=== PATIENT | female | born 2005 | race Caucasian/White ===

== ENCOUNTER 2025-03-06 01:06 | Emergency (ER) | payer BC, SELFPAY ==
--- NOTE | ~2025-03-06 | XR_ITS ---
EXAMINATION: XR hand LT min 3V, 03/06/2025 2:10 CDT HISTORY: pain, injury COMPARISON: No comparisons available. Findings: No acute fracture or malalignment. No significant degenerative changes. Soft tissues unremarkable. Impression: No acute fracture or malalignment. Reviewed, dictated and finalized at location P. Impression: No acute fracture or malalignment.
[2025-03-06 01:17] VITALS: BP 123/75; PULSE 121; RESP 20; TEMP 36.6; O2SAT 100
--- NOTE | 2025-03-06 02:08 | ED_ITS ---
HPI - General Adult General Chief complaint: Extremity Injury, Upper Stated complaint: left hand injury Time Seen by Provider: 03/06/25 02:05 History of Present Illness HPI narrative: Patient 20-year-old female who presents emergency department chief complaint of left hand pain. Patient reports that she was playing softball fell forward onto her hand the patient reports bruising and swelling at the MCP joint of the 2nd digit patient reports that there is a little bit of tingling in her index finger Related Data Allergies Allergy/AdvReac Type Severity Reaction Status Date / Time No Known Allergies Allergy Verified 03/06/25 01:07 Review of Systems Review of Systems: A 10 system review of systems was completed on the patient and is negative except for what is stated in the HPI. Nursing and ancillary documentation was reviewed. Exam Narrative: GENERAL: Well-appearing, well-nourished, and in no acute distress. HEAD: Normocephalic, atraumatic. EYES: PERRLA and EOMI. ENT: Nares clear, no rhinorrhea or epistaxis. Mucous membranes moist. NECK: Supple. CHEST: Clear to auscultation. No respiratory distress. HEART: Regular rate and rhythm. No murmur heard. Normal peripheral pulses. ABDOMEN: Soft, nontender, nondistended, normal active bowel sounds. EXTREMITIES: Normal range of motion bruising present at the MCP joint of the left hand of the 2nd digit. No edema. SKIN: Warm, dry, no rash. NEURO: No focal deficits. Alert and oriented x3. PSYCH: Normal mood and affect. Course Vital Signs Vital signs: Vital Signs Temperature 36.6 C 03/06/25 01:17 Pulse Rate 121 H 03/06/25 01:17 Respiratory Rate 20 03/06/25 01:17 Blood Pressure 123/75 03/06/25 01:17 Pulse Oximetry 100 03/06/25 01:17 Oxygen Delivery Room Air 03/06/25 01:17 Temperature 36.6 C 03/06/25 01:17 Pulse Rate 121 H 03/06/25 01:17 Respiratory Rate 20 03/06/25 01:17 Blood Pressure 123/75 03/06/25 01:17 Pulse Oximetry 100 03/06/25 01:17 Oxygen Delivery Room Air 03/06/25 01:17 Medical Decision Making [facility] Narrative Medical decision making narrative: Differential diagnosis includes fracture, contusion Plain film x-rays were obtained of the hand that showed no evidence of fracture Vital Signs Vital Signs: Vital Signs Temperature 36.6 C 03/06/25 01:17 Pulse Rate 121 H 03/06/25 01:17 Respiratory Rate 20 03/06/25 01:17 Blood Pressure 123/75 03/06/25 01:17 Pulse Oximetry 100 03/06/25 01:17 Oxygen Delivery Room Air 03/06/25 01:17 Temperature 36.6 C 03/06/25 01:17 Pulse Rate 121 H 03/06/25 01:17 Respiratory Rate 20 03/06/25 01:17 Blood Pressure 123/75 03/06/25 01:17 Pulse Oximetry 100 03/06/25 01:17 Oxygen Delivery Room Air 03/06/25 01:17 Discharge Plan Discharge Clinical Impression: Contusion of dorsum of left hand Patient Disposition: Home Condition: Stable Instructions: Antibiotic Form, Hematoma (ED) Patient Language: Omani Follow-up/Referrals: PHYSICIAN,REAL ESTATE REPRESENTATIVE [Primary Care Provider, Internal Medicine] Tye Davis MD [Physician, Family Practice] Time of Disposition: 02:39
--- OUTSIDE RECORDS SUMMARY | 2025-03-06 02:48 | XMS_ITS | Clinical Summary ---
Author Organization [employer] Randy Caballero Address [address] [facility] [place] [address] Phone Care Team Providers Care Kiln Door Builder Name Role Phone Unavailable Primary Care Provider Unavailabl e Allergies No known active allergies Medications ibuprofen (ADVIL) 200 mg tabletIndicatio ns:Conjunctivit is of left eye,Pharyngitis , acute Take 200 mg by mouth every 6 hours as needed. Active ciprofloxacin (CILOXAN) 0.3 % solutionIndicat ions:Conjunctiv itis of left eye,Pharyngitis , acute Administer 1 Drop in left eye every 4 hours. 5 mL 0 4 Active Active Problems No known active problems Family History Medical History Relation Name Comments Healthy Father Healthy Mother Relation Name Status Comments Father Alive Mother Alive Social History Tobacco Use Types Packs/Day Years Used Date Smoking Tobacco: Never Adolescent Education Answer Date Record ed Getting School Help Needed Not on file 12/31 Comments No Sex and Gender Information Value Date Recorded Sex Assigned at Not on file Legal Sex Female 12:27 PM BANK REPRESENTATIVE Gender Identity Not on file Sexual Orientation Not on file Last Filed Vital Signs Vital Sign Reading Time Taken Comments Blood Pressure 113/76 05/29/2014 12:32 PM BANK REPRESENTATIVE Pulse 114 05/29/2014 12:32 PM BANK REPRESENTATIVE Temperature 37.2 C (99 F) 05/29/2014 12:32 PM BANK REPRESENTATIVE Respiratory Rate 20 05/29/2014 12:32 PM BANK REPRESENTATIVE Oxygen Saturation 100% 05/29/2014 12:32 PM BANK REPRESENTATIVE Inhaled Oxygen Concentration - - Weight 29 kg (64 lb) 05/29/2014 12:32 PM BANK REPRESENTATIVE Height 132.1 cm (4' 4) 05/29/2014 12:32 PM BANK REPRESENTATIVE Body Mass Index 16.64 05/29/2014 12:32 PM BANK REPRESENTATIVE Plan of Treatment Health Maintenance Due Date Last Done Comments CHLAMYDIA SCREENING (ANNUAL) 11-24 YEARS 01/29/2015 HPV VACCINES (1 - 3-dose series) 01/29/2019 DTAP/TDAP/TD VACCINES (1 - Tdap) 01/29/2023 HEPATITIS B VACCINES (1 of 3 - 19+ 3-dose series) 06/2022 INFLUENZA VACCINE (#1) 2024 CERVICAL CANCER SCREENING 01/29/2025 HPV/Cotest (21-29) 01/29/2025 PAP SMEAR 01/29/2025 Insurance [employer]/TRUE BLUE PPO [employer] BLUE UBIKOD/TRUE BLUE PPO
--- OUTSIDE RECORDS SUMMARY | 2025-03-06 02:48 | XMS_ITS | Clinical Summary ---
Author Organization [facility] Address [address] [place] [address] Care Team Providers Care Drawbridge Operator Name Role Phone Kimmie Beauchamp MD Primary Care Provider Allergies No known active allergies Medications No known medications Social History Tobacco Use Types Packs/Day Years Used Date Smoking Tobacco: Never Assessed Comments Unknown Sex and Gender Information Value Date Recorded Sex Assigned at Not on file Legal Sex Female 2:48 PM CDT Gender Identity Not on file Sexual Orientation Not on file Last Filed Vital Signs Vital Sign Reading Time Taken Comments Blood Pressure 121/70 11/05/2020 12:24 PM CDT Pulse 90 11/05/2020 12:24 PM CDT Temperature 36.7 C (98 F) 06/09/2022 7:52 AM UTILITY REPAIRER Respiratory Rate 18 06/09/2022 7:52 AM UTILITY REPAIRER Oxygen Saturation - - Inhaled Oxygen Concentration - - Weight 53.3 kg (117 lb 8.1 oz) 06/09/2022 7:52 A M UTILITY REPAIRER Height 156.8 cm (5' 1.73) 06/09/2022 7:52 AM CS T Body Mass Index 21.68 06/09/2022 7:52 AM UTILITY REPAIRER Plan of Treatment Health Maintenance Due Date Last Done Comments RSV (NIRSEVIMAB) Aged Out No longer e ligible based on patient's age to complete this topic Insurance [facility] PPO [place] [place] Care Teams Drawbridge Operator Relationship Specialty Start Date End Date Kimmie Beauchamp MD [address] [id number] PCP - General GENERAL MEDICINE 09/24/20
--- OUTSIDE RECORDS SUMMARY | 2025-03-06 02:48 | XMS_ITS | Clinical Summary ---
Author Organization [facility] Address [address] [place] [address] Care Team Providers Care Cooler Room Worker Name Role Phone Kimmie Beyer MD Primary Care Provide r Source Comments In the event that this is information that is protected by [facility] Confidentiality of Substance UseDisorder Patient Records, 42 CFR Part 2 prohibits the unauthorized disclosure of these records.[facility] Allergies No known active allergies Medications amoxicillin 400 mg/5 mL suspension Take 9ml po bid for 10 days 180 mL 0 09/18/2015 Active Active Problems Problem Noted Date Diagnosed Date Hypertrophy of tonsils with hypertrophy of adeno ids 06/01/2011 Family History Medical History Relation Name Comments Malig. Hyperthermia Neg Hx Pseudochol. Deficiency Neg Hx Social History Tobacco Use Types Packs/Day Years Used Date Smoking Tobacco: Never Assessed Comments No Sex and Gender Information Value Date Recorded Sex Assigned at Not on file Legal Sex Female 9:12 PM CDT Gender Identity Not on file Sexual Orientation Not on file Last Filed Vital Signs Vital Sign Reading Time Taken Comments Blood Pressure 119/74 09/18/2015 4:28 PM CDT Pulse 124 09/18/2015 4:28 PM CDT Temperature 38.4 C (101.1 F) 09/18/2015 4:28 PM CDT Respiratory Rate 20 09/18/2015 4:28 PM CDT Oxygen Saturation 100% 09/18/2015 4:28 PM CDT Inhaled Oxygen Concentration - - Weight 30.8 kg (68 lb) 09/18/2015 4:28 PM CDT Height 139.7 cm (4' 7) 09/18/2015 4:28 PM CDT Body Mass Index 15.8 09/18/2015 4:28 PM CDT Plan of Treatment Health Maintenance Due Date Last Done Comments HIV SCREENING 01/29/2019 Chlamydia Screening-Yearly 2020 Gonorrhea Screening-Yearly 2020 HEPATITIS C SCREENING 01/29/2022 LIPID TESTING 01/29/2022 COVID-19 VACCINE ( season) 2025 INFLUENZA (#1) 2025 03/04/2017 CERVICAL CANCER SCREENING 01/29/2025 DTAP/TDAP/TD (7 - Td or Tdap) 11/17/2025 11/18/2015, 12/24/2009, 08/03/2005, Additional history exists Pneumococcal 0-49 Aged Out 02/02/2005, , 2004, Additional history exists No longer eligible based on patient's age to complete this topic HPV Completed 11/10/2018, 03/04/2017 MENINGOCOCCAL CONJUGATE (MCV4) Completed 12/29/2020, 11/18/2015 MENINGOCOCCAL B (MENB) Completed 02/04/2022, 2021 [id number] [facility] P[facility] P[facility] P[facility] * Guarantor: MACEY DELA CRUZ Account Type Relation to Patient Date of Phone Billing Address [facility] Mother 1974 [address] [place] [address] Care Teams Cooler Room Worker Relationship Specialty Start Date End Date Kimmie Beyer MD [facility] [phone] PCP - General Pediatrics 04/01/11
--- OUTSIDE RECORDS SUMMARY | 2025-03-06 02:48 | XMS_ITS | Clinical Summary ---
Author Organization [facility] Address [address] [place] [address] Care Team Providers Care Leaflet Or Newspaper Deliverer Name Role Phone Pcp, Verify Primary Care Provider Unavailabl e Allergies No known active allergies Medications dexmethylphenida te (FOCALIN XR) 10 MG 24 hr capsule Take 5 mg by mouth daily. (Takes during weekdays) 6 Active amoxicillin-clav ulanate (AUGMENTIN) 500-125 MG per tablet Take 1 tablet by mouth every 12 hours. Take with food. 20 tablet 9 Active clarithromycin (BIAXIN) 500 MG tablet Take 1 tablet by mouth every 12 hours. 20 tablet 9 Active albuterol 108 (90 Base) MCG/ACT inhalerIndicatio ns:Pneumonia of both lungs due to infectious organism, unspecified part of lung Take 2 inhalations every 4 hours as needed 1 Inhaler 9 Active Active Problems No known active problems Resolved Problems Problem Noted Date Diagnosed Date Resolved Date Short stature for age 0611/18/20152019 Overview (11/13/2019): Overview: Recheck in 1 year Underweight 11/18/2015 11/16/2019 Overview (11/13/2019): Overview: Recheck in 1 year Hypertrophy of tonsils with hypertrophy of adenoids 06/01/2011 11/16/2019 Immunizations Immunization Administration Dates Next Due DTaP 12/24/2009, 6,2004,06/01,2004 HIB, Unspecified Formulation 05/04/2005,06/01/19 05,2004 HPV 9-Valent 11/10/2018,03/04/2017 Hep A, ped/adol, 2 dose 11/10/2018 Hep B, Unspecified Formulation 05/04/2005,2004,2004 Hepatitis A - Adult 03/04/2017 IPV 12/24/2009, 6,2004,04/02 Influenza, unspecified formulation 03/04/2017 MMR 12/24/2009,02/02/2005 Meningococcal B, OMV 02/04/2022,01/05/2022 Meningococcal Conjugate MCV4O 12/29/2020 Meningococcal Conjugate MCV4 P (Menactra) 11/18/2015 Pneumococcal Conjugate 7 Valent 02/03/20 05,2004,2004,04/02 Tdap 11/18/2015 Varicella 12/24/2009,05/04/2005 Surgical History Surgery Date Site/Laterality Comments TONSILLECTOMY AND ADENOIDECTOMY 6 y/o Social History Tobacco Use Types Packs/Day Years Used Date Smoking Tobacco: Never Smokeless Tobacco: Never Alcohol Use Standard Drinks/Week Comments Never 0 (1 standard drink = 0.6 oz pur e alcohol) PHQ-2 Answer Date Recorded Initial depression screening score: 0 01/05/2022 Inadequate Housing Answer Date Recorded Social Determinants: Housing (Overall Score Help er) 0 01/09/2019 Sexually Active Control Partners Comments Yes Condom Comments Unknown Sex and Gender Information Value Date Recorded Sex Assigned at Not on file Legal Sex Female 11:08 PM CDT Gender Identity Not on file Sexual Orientation Not on file Obstetrics History Last Filed Vital Signs Vital Sign Reading Time Taken Comments Blood Pressure 122/80 06/29/2022 4:32 PM RECEPTIONIST SCHEDULER Pulse 85 01/05/2022 11:45 AM CDT Temperature 36.6 C (97.9 F) 01/05/2022 11:45 AM CDT Respiratory Rate 18 03/15/2019 1:08 PM CDT Oxygen Saturation 99% 01/05/2022 11:45 AM CDT Inhaled Oxygen Concentration - - Weight 52.7 kg (116 lb 2 oz) 06/29/2022 4:32 PM RECEPTIONIST SCHEDULER Height 157.5 cm (5' 2) 06/29/2022 4:32 PM RECEPTIONIST SCHEDULER Body Mass Index 21.24 06/29/2022 4:32 PM RECEPTIONIST SCHEDULER Plan of Treatment Health Maintenance Due Date Last Done Comments Depression Screening 2016 Chlamydia and Gonorrhea Screening (if sexually active) 01/29/2022 Well Child Visit (ages 3 - 21) 01/05/2023 01/05/2022, 12/29/2020, 11/13/2019, Additional history exists COVID-19 Vaccine ( - 2023- season) 2025 Influenza Vaccine (#1) 2025 03/04/2017 DTaP/Tdap/Td Vaccine (7 - Td or Tdap) 11/17/2025 11/18/2015, 12/24/2009, 08/03/2005, Additional history exists Pneumococcal Vaccine 0-49 Aged Out 2004, 2004, 2004, Additional history exists No longer eligible based on patient's age to complete this topic Hepatitis B Vaccine Completed 05/04/2005, 2004, 2004 Varicella Vaccine Completed 12/24/2009, 05/04/2005 HPV Vaccine Completed 11/10/2018, 03/04/2017 Hepatitis A Vaccine Completed 11/10/2018, 7 Meningococcal Vaccine Completed 12/29/2020, 016 Meningococcal Serogroup B Vaccine Completed 02/04/2022, 01/05/2022 Insurance [facility] Care Teams Leaflet Or Newspaper Deliverer Relationship Specialty Start Date End Date Pcp, Verify PCP - General 08/23/23
--- OUTSIDE RECORDS SUMMARY | 2025-03-06 02:48 | XMS_ITS | Encounter Summary ---
Author Organization [facility] Address [address] [place] [address] Care Team Providers Care Perioperative Tech Name Role Phone Kimmie Beyer MD Primary Care Provide r Source Comments In the event that this is information that is protected by federal Confidentiality of Substance User Disorder Patient Records, 42 CFR Part 2 prohibits the unauthorized disclosure of these records.[facility] Encounter Details Date Type Department Care Team (Late st Contact Info) Description 02/10/2022 Lab Requisition [place] Pathology [address] [place] [address] Neto Ho DO [address] [place] [address] Acute pharyngitis, unspecified Social History Tobacco Use Types Packs/Day Years Used Date Smoking Tobacco: Never Assessed Comments No Sex and Gender Information Value Date Recorded Sex Assigned at Not on file Legal Sex Female 9:12 PM CDT Gender Identity Not on file Sexual Orientation Not on file documented as of this encounter Plan of Treatment Not on file documented as of this encounter Procedures Procedure Name Priority Date/Time Associated Diagnosis Comments CULTURE:THROAT ([facility]) Routine 02/10/2022 6:44 PM CDT Acute pharyngitis, unspecified documented in this encounter Results * Culture: Throat ([facility]) (02/10/2022 6:44 PM CDT) THROAT CULTURE No Group A Strep or Arcanobacterium isolated at 2 days 02/13/2022 2:54 PM CDT [facility] THROAT CULTURE Light Growth Normal Respiratory Juliet 02/13/2022 2:54 PM CDT [facility] Swab PHARYNGEAL STRUCTURE / Unknown 02/10/2022 6:44 PM CDT 02/11/2022 1:02 AM CDT Neto Ho DO MICROBIOLOGY - GENER AL ORDERABLES Final Result [facility] [address] [place], [place] [id number] documented in this encounter Visit Diagnoses Diagnosis Acute pharyngitis, unspecified documented in this encounter Care Teams Perioperative Tech Relationship Specialty Start Date End Date Kimmie Beyer MD [address] [phone] PCP - General Pediatrics 04/01/11 documented as of this encounter
--- OUTSIDE RECORDS SUMMARY | 2025-03-06 02:48 | XMS_ITS | Encounter Summary ---
Author Organization [facility] Address [address] [place] [address] Care Team Providers Care Fibre Cement Moulder Name Role Phone Kimmie Beyer MD Primary Care Provide r Source Comments In the event that this is information that is protected by federal Confidentiality of Substance User Disorder Patient Records, 42 CFR Part 2 prohibits the unauthorized disclosure of these records.[facility] Encounter Details Date Type Department Care Team (Late st Contact Info) Description 11/14/2019 Ancillary Orders [place] Central Scheduling [address] [place] [address] Kimmie Beyer MD [address] [phone] Adolescent idiopathic scoliosis of thoracic region; Pain of right scapula Social History Tobacco Use Types Packs/Day Years Used Date Smoking Tobacco: Never Assessed Comments No Sex and Gender Information Value Date Recorded Sex Assigned at Not on file Legal Sex Female 9:12 PM CDT Gender Identity Not on file Sexual Orientation Not on file documented as of this encounter Plan of Treatment Not on file documented as of this encounter Results * Xray Spine Scoliosis AP Lateral (09/09/2020 9:20 AM CDT) Anatomical Region Laterality Modality Spine, C-spine, T-spine, L-spine Computed Radiography 09/09/2020 10:0 0 AM CDT Narrative 09/09/2020 10:07 AM CDT XR SPINE SCOLIOSIS AP LAT HISTORY: Scoliosis. COMPARISON: None. FINDINGS: There is S-shaped thoracolumbar scoliosis with levoconvex upper thoracic, dextroconvex lower thoracic and levoconvex lumbar components. Upper thoracic levoconvexity measures 20 degrees. Lower thoracic dextroconvexity measures 22 degrees. Lumbar levoconvexity measures 13 degrees. There are 12 rib-bearing thoracic vertebral bodies and 5 lumbar vertebrae. There is no pelvic tilt. No vertebral anomaly or paraspinal mass is seen. Vertebral body heights are maintained. There is normal thoracic kyphosis and lumbar lordosis. The remainder of the bones are normal. The visualized lung lam are clear and the cardiomediastinal silhouette is unremarkable. The bowel gas pattern is nonobstructive. IMPRESSION: Thoracolumbar scoliosis. END OF IMPRESSION FINAL REPORT Attending Radiologist: Anton Vega MD Date Signed Off: 09/09/2020 10:07 Procedure Note Anton Vega MD - 09/09/2020 XR SPINE SCOLIOSIS AP LAT HISTORY: Scoliosis. COMPARISON: None. FINDINGS: There is S-shaped thoracolumbar scoliosis with levoconvex upper thoracic,dextroconvex lower thoracic and levoconvex lumbar components. Upper thoracic levoconvexity measures 20 degrees. Lower thoracic dextroconvexity measures 22 degrees. Lumbar levoconvexity measures 13 degrees. There are 12 rib-bearing thoracic vertebral bodies and 5 lumbar vertebrae.There is no pelvic tilt. No vertebral anomaly or paraspinal mass isseen. Vertebral body heights are maintained. There is normal thoracickyphosis and lumbar lordosis. The remainder of the bones are normal. The visualized lung lam areclear and the cardiomediastinal silhouette is unremarkable. The bowel gaspattern is nonobstructive. IMPRESSION: Thoracolumbar scoliosis. END OF IMPRESSION FINAL REPORT Attending Radiologist: Anton Vega MD Date Signed Off: 09/09/2020 10:07 Kimmie Beyer MD IMG DIAGNOSTIC IMAGIN G ORDERABLES Final Result documented in this encounter Visit Diagnoses Diagnosis Adolescent idiopathic scoliosis of thoracic region Scoliosis (and kyphoscoliosis), idiopathic Pain of right scapula Pain in joint, shoulder region Adolescent idiopathic scoliosis of thoracic region Scoliosis (and kyphoscoliosis), idiopathic Pain of right scapula Pain in joint, shoulder region documented in this encounter Care Teams Fibre Cement Moulder Relationship Specialty Start Date End Date Kimmie Beyer MD [address] [phone] PCP - General Pediatrics 04/01/11 documented as of this encounter
--- OUTSIDE RECORDS SUMMARY | 2025-03-06 02:48 | XMS_ITS | Encounter Summary ---
Author Organization [facility] Address [address] [place] [address] Care Team Providers Care Carbon Paste Mixer Operator Name Role Phone Kimmie Beyer MD Primary Care Provide r Source Comments In the event that this is information that is protected by federal Confidentiality of Substance User Disorder Patient Records, 42 CFR Part 2 prohibits the unauthorized disclosure of these records.[facility] Encounter Details Date Type Department Care Team (Late st Contact Info) Description 11/25/2020 Lab Requisition [place] Pathology [address] [place] [address] Neto Ho DO [address] [place] [address] Acute pharyngitis, unspecified Social History Tobacco Use [...] Date/Time Associated Diagnosis Comments CULTURE:THROAT ([facility]) Routine 11/25/2020 11:16 AM CDT Acute pharyngitis, unspecified documented in this encounter Results * Culture: Throat ([facility]) (11/25/2020 11:16 AM CDT) THROAT CULTURE No Group A Strep or Arcanobacterium isolated at 2 days 11/27/2020 1:32 PM CDT [facility] THROAT CULTURE Moderate Growth Normal Respiratory Juliet 11/27/2020 1:32 PM CDT [facility] Swab PHARYNGEAL STRUCTURE / Unknown 11/25/2020 11:16 AM CDT 11/25/2020 2:13 PM CDT Neto Ho DO MICROBIOLOGY - GENER AL ORDERABLES Final Result [facility] [address] [place], [place] [id number] documented in this encounter Visit Diagnoses Diagnosis Acute pharyngitis, unspecified documented in this encounter Care Teams Carbon Paste Mixer Operator Relationship Specialty Start Date End Date Kimmie Beyer MD [address] [phone] PCP - General Pediatrics 04/01/11 documented as of this encounter
== END 2025-03-06 02:48 | disposition home or self-care (01) ==
LOC: ANHED 02:47
PROVIDERS: Emergency Provider Emergency Medicine
DX: S60.222A Contusion of left hand, initial encounter (principal); W18.30XA Fall on same level, unspecified, initial encounter; Y93.64 Activity, baseball
CPT/HCPCS: 73130; 99283